=== PATIENT | female | born 1945 | race Caucasian/White ===

== ENCOUNTER 2017-06-20 18:50 | Emergency (ER) | payer MEDICARE ==
[~2017-06-20] VITALS: Ht 152.4 cm; Wt 74.5 kg
[2017-06-20] MEDS ORDERED: LOSA50TA37 PO (18:59)
[2017-06-20] MEDS ORDERED: METO50 PO (18:59)
[2017-06-20 20:43] VITALS: BP 137/76
== END 2017-06-20 20:44 | disposition home or self-care (01) ==
LOC: EMS 18:52
DX: I10 Essential (primary) hypertension (principal); R42 Dizziness and giddiness
CPT/HCPCS: 93005; 99285